=== PATIENT | male | born 1980 | race Two or more races ===

== ENCOUNTER 2017-02-22 13:12 | Emergency (ER) | payer OTHER ==
--- NOTE | ~2017-02-22 | ER ---
PATIENT'S NAME: CLARK [facility] AGE: 36 Y [address] ROOM: [place] [address] LOCATION: [facility] ADMIT DATE: 02/22/2017 ER/Outpatient Report DISCHARGE DATE: 02/22/2017 FAMILY PHYSICIAN: PHYSICIAN, NO ATTENDING PHYSICIAN: Bhavin Lott Time of Arrival: Time of Evaluation: Seen at 1320 hours. HISTORY OF PRESENT ILLNESS: The patient is a 36-year-old male, who presents with low back pain, started over the last couple days. 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 He states the last week they were doing a lot of concrete work. The patient denies any fever or chills. The pain does not radiate to his legs. The patient did state that occasionally he gets chest pain but denies shortness of breath. PAST MEDICAL HISTORY: ALLERGIES: NONE. HOME MEDICATIONS: None. MEDICAL HISTORY: An accident about a year ago where he had some mild injuries. No back injuries at that time. Otherwise, no chronic diseases. SOCIAL HISTORY: Says he smokes about one cigarette a day. Chews. No alcohol. 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 REVIEW OF SYSTEMS: GENERAL: No recent fever, chills. HEAD AND EENT: Denies any headache, neck pain. RESPIRATORY AND CARDIOVASCULAR: Occasionally had some intermittent chest pain. GASTROINTESTINAL: No weight loss. No change in bowel habits. GENITOURINARY: No urinary incontinence. MUSCULOSKELETAL: Includes back pain, mostly in the lumbar area. Denies any central spine tenderness. Pain is worse with movement. NEUROLOGIC: Denies any numbness or tingling to his lower extremities. PHYSICAL EXAMINATION: PATIENT'S NAME: CLARK [facility] AGE: 36 Y [address] ROOM: [place] [address] LOCATION: [facility] ADMIT DATE: 02/22/2017 ER/Outpatient Report DISCHARGE DATE: 02/22/2017 FAMILY PHYSICIAN: PHYSICIAN, LALO ATTENDING PHYSICIAN: Bhavin Lott VITAL SIGNS: Blood pressure is 116/57, his temperature is 97.2, his respiratory rate 16, pulse 54, and his O2 sats 96%. GENERAL APPEARANCE: male, appears fit. His gait appeared essentially normal. HEAD AND EENT: Sclerae are clear. Oral membranes moist. LUNGS: Clear. HEART: Rhythm appeared regular. ABDOMEN: Firm with good muscle tone. Nontender. BACK: Some tenderness bilaterally over the paralumbar muscle groups. No central spine tenderness. Range of motion was limited somewhat. NEUROLOGIC: Good patellar reflexes. Strength appeared normal. IMAGING STUDIES: Chest x-ray was unremarkable. CBC, CMS, and urine; no gross abnormalities noted. ASSESSMENT: Low back pain probable musculoskeletal. PLAN: Note given for work for 3 days. Rest his back. We put him on Naprosyn 500 b.i.d., Flexeril 10 mg t.i.d. Recommend the use of ice and heat. Follow up with primary care if he does not improve. TELMA MARCUS FOR MD MARISELA DARDEN/kirsten /[id number] d: 02/22/17 1616 t: 03/15/17 0859, OUTPATIENT REPORT
[~2017-02-22 13:12] MED LIST: AUGMENTIN875 MG PO; NORCO 5-325 MG1 TAB PO
[2017-02-22 13:42] LABS: BASOPHIL % 0.7 %; EOSINOPHIL # 0.2 K/uL (0.0-0.5); EOSINOPHIL % 2.8 %; HEMATOCRIT 43.2 % (37.0-53.0); HEMOGLOBIN 15.4 g/dL (12.0-17.0); IMMATURE GRANULOCYTE % 0.2 %; LYMPHOCYTE # 1.9 K/uL (0.8-4.0); LYMPHOCYTE % 33.3 %; MCHC 35.6 gm/dL (32.0-36.5); MCV 89.6 fl (83.0-98.0); MONOCYTE # 0.3 K/uL (0.0-1.0); MPV 11.5 fl (9.4-12.4); NEUTROPHIL # (ANC) 3.4 K/uL (1.4-9.0); NRBC % 0 /100WBC (0-0.00); PLATELET COUNT 207 K/uL (150-450); RBC 4.82 M/uL (4.00-6.00); RDW-CV 12.1 % (11.9-14.6); WBC 5.8 K/uL (4.0-11.0)
[2017-02-22 13:58] LABS: BILIRUBIN URINE NEGATIVE (NEGATIVE); BLOOD URINE NEGATIVE /UL (NEGATIVE); COLOR URINE STRAW (YELLOW); GLUCOSE URINE NEGATIVE (NEGATIVE); KETONE URINE NEGATIVE (NEGATIVE); LEUKOCYTES URINE NEGATIVE /UL (NEGATIVE); NITRITE URINE NEGATIVE (NEGATIVE); PROTEIN URINE NEGATIVE (NEGATIVE); TURBIDITY URINE CLEAR (CLEAR); UROBILINOGEN URINE NORMAL (NORMAL)
[2017-02-22 14:01] LABS: ALBUMIN 4.1 gm/dL (3.5-5.0); ANION GAP 7.8 (10.0-19.0); CALCIUM 8.9 mg/dL (8.5-10.5); CREATININE 1.3 mg/dL (0.6-1.3); POTASSIUM 3.8 mMol/L (3.7-5.1); TOTAL BILIRUBIN 0.4 mg/dL (0.0-1.5); TOTAL PROTEIN 7.8 g/dL (6.0-8.4)
== END 2017-02-22 14:30 | disposition disaster alternative care site (69) ==
LOC: GMED 13:12
PROVIDERS: Physician Assistant Medical
DX: M54.5 Low back pain (principal); F17.210 Nicotine dependence, cigarettes, uncomplicated

== ENCOUNTER 2017-02-25 07:52 | Emergency (ER) | payer OTHER ==
--- NOTE | ~2017-02-25 | ER ---
PATIENT'S NAME: YUE RODASUEL A [facility] AGE: 36 Y [address] ROOM: [place] [address] LOCATION: [facility] ADMIT DATE: 02/25/2017 ER/Outpatient Report DISCHARGE DATE: 02/25/2017 FAMILY PHYSICIAN: PHYSICIAN, NO ATTENDING PHYSICIAN: Melinda Miller Time of Arrival: 0752 hours. Time of Evaluation: 0803 hours. IDENTIFICATION: A 36-year-old male. CHIEF COMPLAINT: Back pain. HISTORY OF PRESENT ILLNESS: The patient is a 36-year-old male, who does not speak fluent Swedish but does speak some Swedish; his is with him, and she also speaks Swedish. He was here on with back pain. His back pain persists despite Flexeril he was prescribed. They said an x-ray on that date was normal. He did have a chest x-ray. 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 No fall or injury. No blood in his urine. No other problems or concerns. No nausea or vomiting. No abdominal pain. No numbness or tingling, although he states it hurts in his back when he lifts his legs. He denies any bowel or bladder problems. ALLERGIES: NO KNOWN DRUG ALLERGIES. CURRENT MEDICATIONS: 1. Naproxen 500 mg b.i.d. 2. Flexeril 10 mg t.i.d. p.r.n. 3. Tylenol p.r.n. 4. He has not had any Flexeril today. MEDICAL PROBLEMS: Denies. PRIOR SURGERIES: Appendectomy, clavicle surgery, right hand, and right face. SOCIAL HISTORY: The patient is , lives here in [place]. Works [place] [employer]. Tobacco use, one cigarette per day. Alcohol use, denies. Drug use, denies. PATIENT'S NAME: CLARK MARSHA [facility] AGE: 36 Y [address] ROOM: [place] [address] LOCATION: [facility] ADMIT DATE: 02/25/2017 ER/Outpatient Report DISCHARGE DATE: 02/25/2017 FAMILY PHYSICIAN: PHYSICIAN, NO ATTENDING PHYSICIAN: Melinda Miller REVIEW OF SYSTEMS: All systems reviewed and negative other than what is noted in the HPI. PHYSICAL EXAMINATION: VITAL SIGNS: Height 5 feet 6 inches, weight 76.8 kg, pulse 57, respirations 18, temperature 96.1, sats 99%, blood pressure 127/50. GENERAL: A pleasant 36-year-old male, in obvious distress, 6/10 pain. HEENT: Unremarkable. LUNGS: Clear to auscultation. HEART: Regular rate and rhythm. ABDOMEN: Soft, nondistended, nontender. SKIN: [place], warm, and dry. No lesions or rashes noted. NEURO: The patient is alert and oriented x4. Cranial nerves 2 through 12 grossly intact. Motor strength 5/5 throughout. Sensation is intact to light touch. The patient has positive straight leg raise bilaterally. LABORATORY DATA AND X-RAYS: His was concerned about kidney stone. UA is negative. I did review his labs from February 22, 2017. He had a normal CBC and a normal chemistry panel. CT scan stone protocol is negative. CT scan of his lumbar spine reveals degenerative changes, worse at L4-5 with a disk protrusion asymmetric to the left. IMPRESSION AND PLAN: Lumbar disk disease. PLAN: Lumbar disk pain handout. The patient was given Percocet x1 here with improvement of his pain to a 2/10. Vital signs remained stable. Percocet 5/325 one p.o. q.6 hours p.r.n. severe pain, dispensed 15, with 0 refills. Flexeril as needed. Continue naproxen. Prednisone 10 mg 2 tablets b.i.d. for 2 days, 1.5 tablet b.i.d. x2 days, 1 tablet b.i.d. for 2 days, 1 tablet daily for 2 days, half tablet daily for 2 days. The patient is to establish care with a primary care physician and follow up in 2 to 5 days. He will remain off work until that followup. The patient and his understand and agree, and all questions have been answered. MELINDA MILLER MD CAR/modl PATIENT'S NAME: RENEE RODAS [facility] AGE: 36 Y [address] ROOM: [place] [address] LOCATION: [facility] ADMIT DATE: 02/25/2017 ER/Outpatient Report DISCHARGE DATE: 02/25/2017 FAMILY PHYSICIAN: LALO JONES ATTENDING PHYSICIAN: Melinda Miller /[id number] d: 02/25/17 2310 t: 03/01/1712, OUTPATIENT REPORT
[2017-02-25 08:54] LABS: BILIRUBIN URINE NEGATIVE (NEGATIVE); BLOOD URINE NEGATIVE /UL (NEGATIVE); COLOR URINE YELLOW (YELLOW); GLUCOSE URINE NEGATIVE (NEGATIVE); KETONE URINE NEGATIVE (NEGATIVE); LEUKOCYTES URINE NEGATIVE /UL (NEGATIVE); NITRITE URINE NEGATIVE (NEGATIVE); PROTEIN URINE NEGATIVE (NEGATIVE); SPEC GRAVITY URINE 1.005 (1.003-1.035); TURBIDITY URINE CLEAR (CLEAR); UROBILINOGEN URINE NORMAL (NORMAL)
== END 2017-02-25 09:35 | disposition disaster alternative care site (69) ==
LOC: GMED 07:52
PROVIDERS: Family Medicine
DX: M51.26 Other intervertebral disc displacement, lumbar region (principal); M47.816 Spondylosis without myelopathy or radiculopathy, lumbar region; F17.210 Nicotine dependence, cigarettes, uncomplicated; Z90.49 Acquired absence of other specified parts of digestive tract; Z98.890 Other specified postprocedural states; Z79.899 Other long term (current) drug therapy